=== PATIENT | male | born 1965 | race Caucasian/White ===

== ENCOUNTER 2017-04-02 17:44 | Emergency (ER) | payer BC ==
[2017-04-02 18:25] VITALS: BP 125/77
--- NOTE | 2017-04-02 22:10 | UC ---
Skin Complaint HPI - HPI Summary HPI Summary: Patient presents to the with left lower leg bug bite which has now produced a bruise surrounding. He denies nay other symptoms. Denies seeing any tick or other bug. He noticed the area yesterday and was concerned for a tick bite. Denies rash. Denies arthralgias, GUTIERREZ or other concerns. There is no erythematous area surrounding the bite. The central is a small slightly raised area without papule. - History of Current Complaint Chief Complaint: UCSkin Time Seen by Provider: 04/02/17 20:17 Stated Complaint: BUG BITE Hx Obtained From: Patient Onset/Duration: Sudden Onset Skin Exposure Onset/Duration: Hours Ago Timing: Constant Onset Severity: Moderate Current Severity: Moderate Pain Intensity: 0 Pain Scale Used: 0-10 Numeric Alleviating Factor(s): Nothing Associated Signs & Symptoms: Positive: Negative Related History: Possible Reaction to: Insect - Allergy/Home Medications Allergies/Adverse Reactions: Allergies Allergy/AdvReac Type Severity Reaction Status Date / Time No Known Allergies Allergy Verified 04/02/17 18:25 Review of Systems Constitutional: Negative Skin: Bruising, Other - small bug bite with surrounding bruising Respiratory: Negative Cardiovascular: Negative Motor: Negative Neurovascular: Negative Neurological: Negative Psychological: Negative Is Patient Immunocompromised?: No All Other Systems Reviewed And Are Negative: Yes PMH/Surg Hx/FS Hx/Imm Hx Previously Healthy: Yes - Surgical History Surgical History: None - Social History Occupation: Employed Full-time Lives: With Family Alcohol Use: None Substance Use Type: None Smoking Status (MU): Never Smoked Tobacco Physical Exam Triage Information Reviewed: Yes Appearance: Well-Appearing, No Pain Distress Vital Signs: Initial Vital Signs Temp 97.5 F 04/02/17 18:23 Pulse 74 04/02/17 18:23 Resp 16 04/02/17 18:23 BP 125/77 04/02/17 18:23 Pulse Ox 99 04/02/17 18:23 Vital Signs Reviewed: Yes Eye Exam: Normal Eyes: Positive: Conjunctiva Clear Neck exam: Normal Neck: Positive: Supple, No Lymphadenopathy Respiratory Exam: Normal Respiratory: Positive: Chest non-tender Cardiovascular Exam: Normal Cardiovascular: Positive: RRR Musculoskeletal Exam: Normal Musculoskeletal: Positive: Strength Intact Neurological Exam: Normal Neurological: Positive: Alert Psychological Exam: Normal Psychological: Positive: Normal Response To Family Skin Exam: Normal Course/Dx - Course Course Of Treatment: Patient evaluated for possible bug bite with surrouding bruising. He is concerned over lyme. He is requesting lyme titer and treatment. Provider agrees to give 5 days supply while awaiting the lyme titer but this was less likely the dx based on no EM rash or known tick bite. Will await results and patient is OK with plan and discharge. - Differential Diagnoses - Skin Complaint Differential Diagnoses: Tick Born Illness, Other - bug bite, insect, FB - Diagnoses Provider Diagnoses: Insect bite Discharge - Discharge Plan Condition: Stable Disposition: HOME Prescriptions: DOXYcycline CAP(*) [DOXYcycline 100MG CAP(*)] 100 mg PO BID #10 cap Patient Education Materials: Doxycycline (By mouth), Lyme Disease (ED), Tick Bite (ED) Referrals: Tim Mccoy MD [Primary Care Provider] - Additional Instructions: Call in 2 days for test results If lyme is positive, you will need an extension on the abx If lyme is negative, discontinue the abx.
== END 2017-04-02 20:42 | disposition home or self-care (01) ==
LOC: UCEAST 17:44
DX: S80.862A Insect bite (nonvenomous), left lower leg, initial encounter (principal); W57.XXXA Bitten or stung by nonvenomous insect and other nonvenomous arthropods, initial encounter; Y93.9 Activity, unspecified; Y92.9 Unspecified place or not applicable
CPT/HCPCS: 86618; 99202; G0463